=== PATIENT | female | born 1975 | race Caucasian/White ===

== ENCOUNTER 2022-10-09 14:39 | Outpatient (CLI) | payer BC | END 2022-10-09 14:40 | disposition home or self-care (01) | LOC: CSHMAMMO 14:39 | PROVIDERS: ATTEND Obstetrics & Gynecology | DX: Z12.31 Encounter for screening mammogram for malignant neoplasm of breast (principal) | CPT/HCPCS: 77063; 77067 ==

== ENCOUNTER 2024-03-12 11:04 | Outpatient (CLI) | payer BC | END 2024-03-12 11:05 | disposition home or self-care (01) | LOC: CSHMAMMO 11:04 | PROVIDERS: ATTEND Obstetrics & Gynecology | DX: Z12.31 Encounter for screening mammogram for malignant neoplasm of breast (principal) | CPT/HCPCS: 77063; 77067 ==